=== PATIENT | male | born 1950 | race Caucasian/White ===

== ENCOUNTER → 2017-05-26 | Outpatient (CLI) | payer MEDICARE, BC ==
[2017-05-26 12:44] LABS: Blood Urea Nitrogen 19 mg/dL (9-20)
--- NOTE | 2017-05-26 13:36 | CT ---
EXAMINATION TYPE: CT soft tissue neck w con DATE OF EXAM: 05/26/2017 COMPARISON: NONE HISTORY: Patient complains of left tonsillar swelling, painful swallowing, and a hole in the left pos terior upper maxilla of his mouth. CT DLP: 325.2 mGycm CONTRAST: CT scan of the neck is performed with IV Contrast, patient injected with 100 mL of Omnipaque 300. Contrast enhanced CT of the neck was performed from the skull base through the lung apices. AIRWAY: Mild fullness of the left tonsillar pillar relative to its right-sided counterpart. No evide nce for abscess. The supraglottic, glottic, and subglottic portions of the airway appear patent and f ree of mass. SALIVARY GLANDS: The submandibular and parotid glands are free of mass or inflammatory process. THYROID GLAND: No nodules or masses seen. LYMPH NODES: No adenopathy seen greater than 1cm. LUNG APICES: No nodule or mass is seen. OTHER: Vascular structures are patent. No significant degenerative change of the cervical spine. N o abscess seen. IMPRESSION: 1. Fullness of the left tonsillar pillar without evidence for abscess. Examination is otherwise unrem arkable.
== END | disposition home or self-care (01) ==
LOC: RADCTMAIN 12:02
PROVIDERS: ATTEND Otolaryngology
DX: R22.1 Localized swelling, mass and lump, neck (principal); R49.0 Dysphonia
CPT/HCPCS: 82565; 84520; 70491; 36415; Q9967

== ENCOUNTER → 2017-06-09 | Outpatient (CLI) | payer MEDICARE, BC ==
--- NOTE | 2017-06-10 15:04 | MR ---
MR neck with and without contrast HISTORY: Left tonsillar mass Multiplanar multisequence and postcontrast images obtained through the neck and correlated to CT of t he neck 05/26/2017 There is abnormal soft tissue identified, intermediate signal on T1, increased signal in T2-weighted images involving the left palatine tonsil as noted on patient's CT. Central air signal could be indic ative of cavitation centrally. Overall the mass measures approximately 3.6 by 2.7 x 3.6 cm and extend s from the level of the uvula laterally to the level of the hard palate anteriorly and pterygoid musc ulature laterally. There is some preservation of fat plane laterally however medially there is close proximity to the uvula and extension towards the torus tubarius posteriorly. No evident adenopathy. T here is enhancement of the mass following contrast administration. IMPRESSION: Correlate for squamous cell carcinoma.
== END | disposition home or self-care (01) ==
LOC: RADMRIMAIN 10:33
PROVIDERS: ATTEND Otolaryngology
DX: J35.9 Chronic disease of tonsils and adenoids, unspecified (principal)
CPT/HCPCS: 70543; A9581

== ENCOUNTER → 2017-07-02 | Outpatient (CLI) | payer MEDICARE, BC ==
--- NOTE | 2017-07-04 09:25 | PE ---
EXAMINATION TYPE: PET CT fusion skull to thigh DATE OF EXAM: 07/02/2017 COMPARISON: CT neck May 26, 2017. MRI neck June 09, 2017. 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 TECHNIQUE: Following the intravenous administration of 13.76 mCi of F-18 FDG, whole body images are performed from the skull base to the midthigh. Images are reviewed on the computer in the coronal, a xial, and sagittal planes. Reconstructed rotating images are created on independent workstation and reviewed on the computer. A noncontrast CT is performed in conjunction with the PET scan. Dedicated neck PET/CT imaging is also performed. SCAN: Initial Scan FINDINGS: SKULL BASE AND NECK: Correlating with recent neck CT and MRI studies there is left-sided hypermetabo lic mucosal mass involving the inferior heart palate measuring approximately 1.9 cm AP diameter by 2. 6 cm transverse diameter axial image 30. Craniocaudal length is roughly 3.0 cm on sagittal reconstruc fior images. Lesion corresponds to area of biopsy-proven carcinoma. Max SUV is 30.81. There is abnormal right hypermetabolic submandibular lymph node above the hyoid bone just deep to SCM on axial image 40 measuring 1.3 x 1.3 cm with max SUV of 16.68. Lesion is anterior to the right inte rnal jugular vein. CHEST, MEDIASTINUM, AND HILAR REGION: No suspicious hypermetabolic uptake is seen. ABDOMEN AND PELVIS: No suspicious hypermetabolic uptake is seen. OSSEOUS STRUCTURES: No suspicious hypermetabolic uptake is seen. OTHER CT: There is background moderate underlying emphysematous change present. There is coronary artery calcification which is noted marker for coronary artery disease. Dependent density in gallbladder sludge reflect small stones. Central zone calcifications are seen in prostate gland which is mildly enlarged, correlate for underl jo BPH. There is small to moderate-sized fat-containing left inguinal hernia. There is moderate plaque in abdominal aorta extending into pelvic branch vessels. There is multilevel facet arthropathy in the mid to lower lumbar spine. 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 TNM STAGING T2,N2c,M0
== END | disposition home or self-care (01) ==
LOC: RADPETMAIN 11:42
PROVIDERS: ATTEND Internal Medicine Hematology & Oncology
DX: C77.9 Secondary and unspecified malignant neoplasm of lymph node, unspecified (principal); C06.9 Malignant neoplasm of mouth, unspecified; C09.1 Malignant neoplasm of tonsillar pillar (anterior) (posterior)
CPT/HCPCS: 78815; A9552

== ENCOUNTER → 2017-10-04 | Outpatient (CLI) | payer MEDICARE, BC ==
--- NOTE | 2017-10-04 12:12 | US ---
EXAMINATION TYPE: US liver DATE OF EXAM: 10/04/2017 COMPARISON: NONE CLINICAL HISTORY: R94.5 abnormal liver fuctn,Z03.89 Observe for Mets. Abnormal liver enzymes, tonsil CA EXAM MEASUREMENTS: Liver Length: 12.4 cm Gallbladder Wall: 0.3 cm CBD: 0.4 cm Right Kidney: 9.9 x 4.1 x 5.2 cm Pancreas: limited evaluation due to overlying bowel. Visualized portions appear normal. Liver: appears wnl as visualized . No discrete solid or cystic areas are evident. Gallbladder: mobile stones Evidence for sonographic Albrecht's sign: no CBD: wnl Right Kidney: no evidence of hydronephrosis or mass IMPRESSION: 1. Normal-appearing liver. No suspicious changes to suggest metastatic lesions within the liver are e vident. 2. Cholelithiasis
== END | disposition home or self-care (01) ==
LOC: RADUSWWP 08:48
PROVIDERS: ATTEND Internal Medicine Hematology & Oncology
DX: C09.1 Malignant neoplasm of tonsillar pillar (anterior) (posterior) (principal); K80.20 Calculus of gallbladder without cholecystitis without obstruction
CPT/HCPCS: 76705

== ENCOUNTER → 2017-10-08 | Outpatient (CLI) | payer MEDICARE, BC ==
--- NOTE | 2017-10-10 09:13 | PE ---
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 Subsequent tr eatment strategy. Last chemotherapy on 08/30/2017 and last radiation dose on 09/07/2017. TECHNIQUE: Following the intravenous administration of 13.76 mCi of F-18 FDG, whole body images are performed from the skull base to the midthigh. Images are reviewed on the computer in the coronal, a xial, and sagittal planes. Reconstructed rotating images are created on independent workstation and reviewed on the computer. A localization and attenuation correction CT is performed in conjunction with the PET scan. SCAN: Second FINDINGS: Mediastinal background: 1.89. Abdominal background: 2.62. SKULL BASE AND NECK: There is redemonstration of a hypermetabolic left sided mucosal mass (biopsy pro rudy carcinoma) near the uvula and just superior to this on series 3 images 38 through 44 measuring ap proximately 1.4 x 1.2 cm on series 3 image 41. This demonstrates a maximum SUV of 3.5 cm, markedly de creased from the prior of 30.81. This also demonstrates decreased in size. Deep to the sternocleidomastoid muscle and anterior to the left jugular vein at the level of angle of the mandible above the hyoid bone there is a hypermetabolic left cervical chain lymph node with a ma ximum SUV of 3.18. This measures 5 mm in short axis on series 3 image 47. Inferior to this near the level of the hyoid medial to the sternocleidomastoid there are 2 adjacent l ymph nodes with maximum SUVs of 2.54. These measure 4 and 5 mm in short axis on series 3 image 54. No left-sided supraclavicular adenopathy is seen. On the right at the level of angle of mandible anteri or to the jugular vein and medial to the sternocleidomastoid on series 3 image 41 there is a 6 mm aleja rt axis lymph node with a maximum SUV of 2.45 (previous measurement of 16.68). There is diffuse long segment increased metabolic uptake of the esophagus with a maximum SUV of 2.28. This is only slightly elevated above mediastinal background and favored to represent esophagitis giv en its long segment involvement. This extends from approximately the aortic arch to the gastroesophag eal junction. CHEST, MEDIASTINUM, AND HILAR REGION: No suspicious hypermetabolic uptake. ABDOMEN AND PELVIS: No suspicious hypermetabolic uptake. OSSEOUS STRUCTURES: No suspicious hypermetabolic uptake. OTHER CT: There is a multiloculated large left posterior lateral urinary bladder diverticulum is seen on the prior exam with trabeculation of the urinary bladder wall and a second smaller left posterior lateral urinary bladder diverticulum. There is enlargement of the prostate gland as it measures 5.0 cm in transverse dimension and diffuse heterogeneity with central zone calcifications. Findings likel y represent urinary bladder outlet obstruction from prostate gland hypertrophy. The paranasal sinuses and mastoid air cells are clear. Mild degenerative changes are seen of the enti rety of the spine. Again there is mild to moderate background centrilobular emphysematous change. No new focal consolidation, pleural effusion or pneumothorax. There are calcifications are again noted, overall mild in degree. Trace pericardial effusion is seen. Slight layering density within the gallbladder may represent small stones or sludge and was seen on t he prior. Unenhanced liver and spleen are unremarkable morphology. There is redemonstration of a low- density lesion within the left adrenal gland compatible with a benign adenoma with a noncontrast Houn sfield unit of 6. Additionally this demonstrates no hypermetabolic activity with a maximum SUV of 1.2 . Punctate bilateral nonobstructing renal calculi are present. Moderate calcific atheromatous changes a re seen of the abdominal aorta and its branches. Sigmoid diverticulosis without pericolonic fat stran ding is noted. No bowel dilatation. Bilateral fat filled inguinal hernias are small. Degenerative elle nges are present of the femoral acetabular joints. IMPRESSION: 1. Response to treatment. Decrease in SUV of the primary known left tonsillar carcinoma of greater th an 25% and decrease of the contralateral cervical renee metastasis of greater than 25%. Few slightly avid nonenlarged ipsilateral nodes are also noted on today's examination. TNM STAGING REMAINS T2,N2c, M0. 2. No new evidence of metastatic disease within the chest, abdomen, or pelvis. 3. Diffuse long segment mild uptake along the esophagus suggesting esophagitis. If there is further c oncern endoscopy could be performed. 4. Multiple additional incidental findings as described above including multiple left lateral urinary bladder diverticulum with enlargement of the prostate and trabeculation of the urinary bladder wall suggesting lateral at obstruction.
== END | disposition home or self-care (01) ==
LOC: RADPETMAIN 07:29
PROVIDERS: ATTEND Internal Medicine Hematology & Oncology
DX: C09.1 Malignant neoplasm of tonsillar pillar (anterior) (posterior) (principal); C77.0 Secondary and unspecified malignant neoplasm of lymph nodes of head, face and neck
CPT/HCPCS: 78815; A9552

== ENCOUNTER → 2024-12-03 | Outpatient (CLI) | payer MEDICARE ==
--- NOTE | 2024-12-03 12:04 | XR ---
EXAMINATION TYPE: XR chest 2V DATE OF EXAM: 12/03/2024 8:43 AM COMPARISON: None CLINICAL INDICATION: Male, 74 years old with history of R0602 SOB, , TECHNIQUE: Frontal and lateral views FINDINGS: The cardiomediastinal silhouette, aorta, and pulmonary vasculature are within normal limits. Mild hyp erinflation. Lungs and pleural spaces are clear. IMPRESSION: COPD. No acute cardiopulmonary process. [facility], Workstation: [id number], 12/03/2024 12:01 PM
== END | disposition home or self-care (01) ==
LOC: RADXRYALE 08:32
PROVIDERS: ATTEND Family Medicine
DX: J44.9 Chronic obstructive pulmonary disease, unspecified (principal)
CPT/HCPCS: 71046